=== PATIENT | female | born 1990 | race Caucasian/White ===

== ENCOUNTER 2020-01-09 17:23 | Outpatient (REF) | payer MEDICAID, SELFPAY ==
--- NOTE | 2020-01-09 14:30 | PAPFT_PTH ---
PATIENT: Arcelia Richard LOC: [facility] U#:[id number] AGE/SX: 29/F ROOM: RE01/09/[address]: Theresa Vasquez : 1990 BED: DIS: 01/09/2020 SPEC #: [id number] RECD: 01/10/20 13:15 STATUS: LUKAS REDirk #: [id number] JETT: 01/09/20 14:[address]: Theresa Vasquez [facility]PT[facility] Cytology RECD BY: Elisa Elena ENTERED: 01/10/20 13:15 SP TYPE: PAPFT OTHR DR: Con Watsno Tissues: 1 - CX/ENDOCX FOR PAP SMEARS Procedures: PAP THIN PREP/[facility] Screening HPV DNA PROBE Comments: [id number]
[2020-01-09 21:23] LABS: HCT 39.8 % (36.0-46.0); HGB 13.4 g/dL (12.0-15.5); Mean Corp. HGB Concentration 33.7 g/dL (32.0-36.0); Mean Corpuscular Hemoglobin 30.4 pg (27.0-33.0); Mean Corpuscular Volume 90.2 fL (80-95); Mean Platelet Volume 9.7 fL (8.0-11.0); Platelet Count 417 x1000/uL (130-400); RBC 4.41 m/cumm (4.00-5.20); RBC Distribution Width 12.7 % (11.7-14.6); White Blood Cell Count 8.38 k/cumm (4.4-10.8)
[2020-01-09 22:03] LABS: Anion Gap 6.8 mmol/L (3-11); BUN 10 mg/dL (7-18); CO2 28.2 mmol/L (21.0-32.0); CREATININE 0.76 mg/dL (0.55-1.02); Calcium 9.9 mg/dL (8.5-10.1); Chloride 102 mmol/L (98-107); Glucose 100 mg/dL (74-106); Potassium 4.1 mmol/L (3.5-5.1); Sodium 137 mmol/L (136-145); TSH (W/Ref FT4) 1.63 uIU/mL (0.36-3.74)
== END 2020-01-09 17:43 ==
LOC: NCHCN 17:23
PROVIDERS: PCP Family Medicine; Visit Provider Nurse Practitioner Family
DX: N92.1 Excessive and frequent menstruation with irregular cycle (principal); Z12.4 Encounter for screening for malignant neoplasm of cervix; Z11.51 Encounter for screening for human papillomavirus (HPV)
CPT/HCPCS: 80048; 85027; 88142; 84443; 87624

== ENCOUNTER 2021-02-04 01:59 | Outpatient (CLI) | payer MEDICAID, SELFPAY ==
--- NOTE | 2021-02-04 | DI.US_ITS ---
Exam(s) US PELVIS TRANSVAGINAL EXAM: US PELVIS TRANSVAGINAL CLINICAL HISTORY: METRORRHAGIA, N92.1 TECHNIQUE: Ultrasound of the pelvis was performed both transabdominal and transvaginal. COMPARISON: No exams were available for comparison FINDINGS: UTERUS: Nongravid anteverted Measures 7.4 cm length x 3.9 cm AP x 4.5 cm wide. There are no uterine fibroids. Endometrial thickness measures 7 mm. There is no fluid in the endometrial canal. CERVIX: There are no obvious nabothian cysts. RIGHT OVARY: Measures 3.2 x 1.6 x 1.1 cm Contains small sub cm follicular cysts LEFT OVARY: Measures 1.9 x 1.2 x 1.6 cm No significant cysts nor masses evident in the left ovary. CUL-DE-SAC: No free fluid evident. IMPRESSION: 1. Normal appearing uterus and age-appropriate endometrium. 2. No abnormal ovarian findings. 3. No free fluid evident in the adnexal regions and cul-de-sac. DATA REPOSITORY:
== END 2021-02-04 02:19 ==
PROVIDERS: PCP Family Medicine; Visit Provider Nurse Practitioner Community Health
DX: N92.1 Excessive and frequent menstruation with irregular cycle (principal)
CPT/HCPCS: 76830; 76856

== ENCOUNTER 2021-02-19 12:23 | Outpatient (REF) | payer MEDICAID, SELFPAY ==
[2021-02-19 20:57] LABS: HCT 41.4 % (36.0-46.0); HGB 13.3 g/dL (11.2-15.7); MCH 29.6 pg (27.0-33.0); MCHC 32.1 % (32.0-36.0); MCV 92.2 fL (80-95); MPV 9.5 fL (8.0-11.0); Platelet Count 417 10^3/uL (130-400); RBC 4.49 10^6/uL (3.93-5.22); RDW 12.3 % (11.7-14.6); RDW-SD 42.2 fL; WBC 10.42 10^3/uL (4.4-10.8)
[2021-02-19 21:38] LABS: TSH (W/Ref FT4) 1.66 uIU/mL (0.36-3.74)
[2021-02-20 09:24] LABS: Hemoglobin A1C 5.3 % (<5.7)
[2021-02-20 22:20] LABS: Calculated LDL 118 mg/dL (<100); Cholesterol 196 mg/dL (<200); HDL Cholesterol 59 mg/dL (40-60); Triglyceride 96 mg/dL (<150)
== END 2021-02-19 12:24 | disposition home or self-care (01) ==
LOC: NCHCN 12:23
PROVIDERS: PCP Family Medicine; Visit Provider Nurse Practitioner Family
DX: Z00.00 Encounter for general adult medical examination without abnormal findings (principal); N92.1 Excessive and frequent menstruation with irregular cycle
CPT/HCPCS: 80061; 85027; 83036; 84443